=== PATIENT | female | born 1995 | race Two or more races ===

== ENCOUNTER 2025-02-03 11:20 | Outpatient (AMB) | payer BC, SELFPAY ==
--- NOTE | 2025-02-03 11:32 | GYNCLNT_ITS ---
Vital Signs 02/03/25 11:43 Height 1.8 m Height Method Stated Weight 64.92 kg Weight Measurement Method Standing Scale BMI 19.9 BP 108/66 Blood Pressure Source Automatic Cuff Blood Pressure Location Left Upper Arm Position Sitting Respiration 14 Pulse 69 Pulse Source Monitor Temp 97.5 F Temp Source Oral Pulse Oximetry (%) 99 Oxygen Delivery Method Room Air Allergies/Home Meds Allergies & Medications Allergies No Known Allergies Allergy (Verified 02/03/25 11:44) Medication Reconciliation vits no.124-ferrous fum 27 mg iron-folic acid 800 mcg tablet ( Vitamin) 1 tab PO DAILY 09/25/20 [History Confirmed 02/03/25] Intake Visit Data Collection New Patient or Established: Established Patient (seen at [facility] within 3 years) Reason for Visit:: CARE Seen by Clinical Staff ONLY (RN/MA): No 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 Do You Feel Safe at Home: Yes Authorities Contacted: N/A PCP or OBGYN visit in last 3 months: No Hx Now: Yes Are you currently on any form of Control: No Last menstrual period: 11/08/24 Pain Present Currently: No Pain Scale Used: Fierro-Benavidez/Numerical Pain scale:: 0 Smoking Status Smoking Status: Never smoker 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 Menstrual regularity: regular Flow: heavy Monthly: Yes How many days does period last: 6 Age at menarche: 12 Currently sexually active: Yes 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 1. Little interest or pleasure in doing things: not at all 2. Feeling down, depressed, or hopeless: not at all Total score: 0 PHQ-9 3. Trouble falling or staying asleep, or sleeping too much: Not at all 4. Feeling tired or having little energy: Not at all 5. Poor appetite or overeating: Not at all 6. Feeling bad about yourself - or that you are a failure or have let yourself or your family down: Not at all 7. Trouble concentrating on things, such as reading the newspaper or watching television: Not at all 8. Moving or speaking so slowly that other people could have noticed? - Or the opposite - being so fidgety or restless that you have been moving around a lot more than usual: not at all 9. Thoughts that you would be better off or of hurting yourself in some way: Not at all Total score: 0 Source: Developed by Drs. Camron Peters, Lola Burton, Manjinder Tierney and colleagues, with an educational grupo from [employer]. Depression screen completed yes Social History Living Situation History Housing: House Tobacco History Smoking Status: Never smoker Alcohol History Alcohol Intake: Never Domestic Abuse History Do You Feel Safe at Home: Yes History of Present Illness HPI Narrative 30 yo 2 para 1 for confirmation of . Patient had 3 positive home test but they were faint. Last. November 08, 2023. This gives a due date of August 14, 2025. This is a planned and both patient and are happy. Last 2 pregnancies were uncomplicated and normal births. Denies history of surgeries. Denies history of existing past medical history. Denies social habits. Patient has 1 child that has a neurological deficit and is missing a X chromosome. The little boy of 3 years old. And he is diagnosed with BBSOAS. Denies any nausea and vomiting. Feels tired. And denies any symptoms of SAB Review of Systems Review of Systems Systems Reviewed: All systems reviewed, normal except as documented Exam Narrative Physical exam: lungs clear, normal heart rate, VS stable. FH: 12 week. fht: 156 General Limitations: no limitations General Appearance: alert, in no apparent distress, comfortable, cooperative, healthy appearing, well developed and well groomed Head Head exam: atraumatic, normocephalic and normal inspection Resp Respiratory exam: Present normal lung sounds bilaterally Card Cardiovascular exam: Present regular rate, normal rhythm and normal heart sounds Abdominal Abdominal exam: Present soft and normal bowel sounds Psych Psychiatric exam: Present normal affect and normal mood Results Objective Laboratory: + test Office Procedures OB Clinic LOC & Office Proc's Nursing/Assessment Patient Status: Established Patient OB Clinic Nursing Assessment: Medication Reconciliation, Update PMH in EMR and Vital Signs OB Clinic Coordination of Care: Complex Care and Chronic Disease 1-5, Consent,records obtained, informed consent, Education Simp Pt/Fam, Lab and Imaging orders, Results/Orders obtained and Staff clarify orders Miscellaneous Interventions: Blood/Urine Collection Established Patient Charge Established Patient Point Assignment: 135 Established Patient Point Charge: EP Level 4 (120-155) In Clinic Bedside tests Bedside HCG: Yes Urine HCG Ambulatory Location Ambulatory Dept Location: OB Clinic Urine HCG HCG: Yes Results Urine HCG Urine HCG Positive Last Edit by Kandice Williamson MA on 02/03/25 11:49 Assessment & Plan Diagnosis / Problem List (1) Encounter for test, result positive: Status: Acute (2) Encounter for supervision of high risk in first trimester, antepartum: Status: Acute (3) Amenorrhea: Status: Acute Plan Continue vitamins. Patient was given a lab slip for OB panel today. I will schedule maternal- medicine ultrasound and genetics referral today. The patient will call me when she finds out if insurance will approve the maternity test and genetic screenings and then we will draw those. Comfort measures for nausea. Increase fluids and rest. And return in 4 weeks for OB check. Additional Plan Follow Up: 4 Weeks (OBI)
[2025-02-03 11:43] VITALS: BP 108/66; PULSE 69; RESP 14; TEMP 36.4; O2SAT 99; BMI 19.9
== END 2025-02-03 12:06 | disposition home or self-care (01) ==
PROVIDERS: Supervising Provider Obstetrics & Gynecology; Visit Provider Advanced Practice Midwife
DX: Z32.01 Encounter for pregnancy test, result positive (principal); N91.2 Amenorrhea, unspecified
CPT/HCPCS: 81025; 99214; G0463

== ENCOUNTER 2025-03-03 11:23 | Outpatient (AMB) | payer BC, SELFPAY ==
[2025-03-03 11:34] VITALS: BP 105/67; PULSE 79; RESP 17; TEMP 36.9; O2SAT 98; BMI 20.4
--- NOTE | 2025-03-03 11:34 | OBCLNT_ITS ---
Vital Signs 03/03/25 11:34 Height 1.8 m Height Method Stated Weight 66.395 kg Weight Measurement Method Standing Scale BMI 20.4 BP 105/67 Blood Pressure Source Automatic Cuff Blood Pressure Location Right Upper Arm Position Sitting Respiration 17 Pulse 79 Pulse Source Monitor Temp 98.5 F Temp Source Temporal Artery Scan Pulse Oximetry (%) 98 Oxygen Delivery Method Room Air Allergies/Home Meds Allergies & Medications Allergies No Known Allergies Allergy (Verified 03/03/25 11:35) Medication Reconciliation vits no.124-ferrous fum 27 mg iron-folic acid 800 mcg tablet ( Vitamin) 1 tab PO DAILY 09/25/20 [History Confirmed 03/03/25] Intake Visit Data Collection New Patient or Established: Established Patient (seen at [facility] within 3 years) Reason for Visit:: OBC Seen by Clinical Staff ONLY (RN/MA): No 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 1. Little interest or pleasure in doing things: not at all 2. Feeling down, depressed, or hopeless: not at all Total score: 0 PHQ-9 3. Trouble falling or staying asleep, or sleeping too much: Not at all 4. Feeling tired or having little energy: Not at all 5. Poor appetite or overeating: Not at all 6. Feeling bad about yourself - or that you are a failure or have let yourself o r your family down: Not at all 7. Trouble concentrating on things, such as reading the newspaper or watching television: Not at all 8. Moving or speaking so slowly that other people could have noticed? - Or the opposite - being so fidgety or restless that you have been moving around a lot more than usual: not at all 9. Thoughts that you would be better off or of hurting yourself in some way: Not at all Total score: 0 If you checked off any problems, how difficult have these problems made it for you to do your work, take care of things at home, or get along with other people?: not difficult at all Source: Developed by Drs. Camron Peters, Lola Burton, Manjinder Tierney and colleagues, with an educational grupo from [employer]. Depression screen completed yes Social History Living Situation History Housing: House Tobacco History Smoking Status: Never smoker Alcohol History Alcohol Intake: Never Domestic Abuse History Do You Feel Safe at Home: Yes RESIDENTIAL COLLECTIONS: Past Medical History Past Medical History: No Hx Neurological Disorders, No Hx Cardiac Disorders, No Hx Cancer, No Hx Blood Disorders, No Hx Gastrointestinal Disorders, No Hx Renal Disease, No Hx Diabetes Mellitus Type 1 and No Hx Diabetes Mellitus Type 2 Care OB Visit Log OB Flowsheet Initial Weight: Not Recorded Date -?-?-?-?-?-?-?-?-?-?-?-?- EGA Weight BP Alb Glu CTX Pres Fundal ht FHR Mov Dilation Station Effacement Hx Notes Visit Note 03/03/25 -?-?-?-?-?-?-?-?-?-?-?-?- 16w 3d 66.395 kg 105/67 absent unknown 16 145 active no ob complaints, light FM, patient unsure about NIPT draw, MFM appointment pending f/u on perinate appointment, reviewed nIPT, continue PNV, rtc 4 week FRACISCO Calculator Estimated Delivery Date Method Current WG Current Estimate 08/15/25 LMP (Certain) 16w 3d Notes Visit Date: 03/03/25 Last Updated by: Liss Guevara CNM 30 yo . lmp 11/08/24. EDC 08/15/25. O+,abs-, rpr;;nr, rub imm, hbsag-,hiv-. HC-, gc/ct-,[place]- Office Procedures OB Clinic LOC & Office Proc's Nursing/Assessment Patient Status: Established Patient OB Clinic Nursing Assessment: Medication Reconciliation, Update PMH in EMR and Vital Signs OB Clinic Coordination of Care: Complex Care and Chronic Disease 1-5, Consent,records obtained, informed consent, Education Simp Pt/Fam, Lab and Imaging orders and Staff clarify orders Special Needs: Heart tones Established Patient Charge Established Patient Point Assignment: 130 Established Patient Point Charge: EP Level 4 (120-155) Assessment & Plan Diagnosis / Problem List (1) Normal in multigravida in second trimester: Status: Acute Plan f/u on mfm appointment, discussed NIPT, patient will decide if insurance covers, sab precaution, continue PNV, rtc 4 week Additional Plan Follow Up: 4 Weeks (obc)
== END 2025-03-03 12:03 | disposition home or self-care (01) ==
LOC: HODSOBC 11:23
PROVIDERS: Supervising Provider Advanced Practice Midwife; Visit Provider Advanced Practice Midwife
DX: Z34.82 Encounter for supervision of other normal pregnancy, second trimester (principal); Z3A.16 16 weeks gestation of pregnancy
CPT/HCPCS: 99214; G0463

== ENCOUNTER 2025-03-31 11:04 | Outpatient (AMB) | payer BC, SELFPAY ==
[2025-03-31 11:13] VITALS: BP 102/63; PULSE 77; RESP 17; TEMP 36.8; O2SAT 98; BMI 21.0
--- NOTE | 2025-03-31 11:13 | OBCLNT_ITS ---
Vital Signs 03/31/25 11:13 Height 1.8 m Height Method Measured Weight 68.266 kg Weight Measurement Method Standing Scale BMI 21.0 BP 102/63 Blood Pressure Source Automatic Cuff Blood Pressure Location Right Upper Arm Position Sitting Respiration 17 Pulse 77 Pulse Source Monitor Temp 98.2 F Temp Source Temporal Artery Scan Pulse Oximetry (%) 98 Oxygen Delivery Method Room Air Allergies/Home Meds Allergies & Medications Allergies No Known Allergies Allergy (Verified 03/31/25 11:14) Medication Reconciliation vits no.124-ferrous fum 27 mg iron-folic acid 800 mcg tablet ( Vitamin) 1 tab PO DAILY 09/25/20 [History Confirmed 03/31/25] Intake Visit Data Collection New Patient or Established: Established Patient (seen at [facility] within 3 years) Reason for Visit:: C Consent obtained for Telemed Visit: No Seen by Clinical Staff ONLY (RN/MA): No Crocheter Hand Required: No Do You Feel Safe at Home: Yes Authorities Contacted: N/A PCP or OBGYN visit in last 3 months: Yes Date of Last PCP or OBGYN visit: 03/03/25 Hx Now: Yes Are you currently on any form of Control: No Pain Present Currently: No Pain Scale Used: Fierro-Benavidez/Numerical Pain scale:: 0 Smoking Status Smoking Status: Never smoker Questionnaires Covid-19 Vaccine Questionnaire Has patient been vacinated for Covid-19 Have you been vacinated for Covid-19: Yes PHQ-9 PHQ-2 Over the last 2 weeks, how often have you been bothered by any of the following problems? 1. Little interest or pleasure in doing things: not at all PHQ-9 8. Moving or speaking so slowly that other people could have noticed? - Or the opposite - being so fidgety or restless that you have been moving around a lot more than usual: not at all Source: Developed by Drs. Camron Peters, Lola Burton, Manjinder Tierney and colleagues, with an educational gruop from [employer]. 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 Past Medical History: No Hx Neurological Disorders, No Hx Cardiac Disorders, No Hx Cancer, No Hx Blood Disorders, No Hx Gastrointestinal Disorders, No Hx Renal Disease, No Hx Diabetes Mellitus Type 1 and No Hx Diabetes Mellitus Type 2 Care OB Visit Log OB Flowsheet Initial Weight: Not Recorded Date -?-?-?-?-?-?-?-?-?-?-?-?- EGA Weight BP Alb Glu CTX Pres Fundal ht FHR Mov Dilation Station Effacement Hx Notes Visit Note 03/03/25 -?-?-?-?-?-?-?-?-?-?-?-?- 16w 3d 66.395 kg 105/67 absent unknown 16 145 active no ob complaints, light FM, patient unsure about NIPT draw, MFM appointment pending f/u on perinate appointment, reviewed nIPT, continue PNV, rtc 4 week 03/31/25 -?-?-?-?-?-?-?-?-?-?-?--?- 20w 3d 68.266 kg 102/63 absent unknown 20 144 active no ob complaints. no ptl complaints, + FM, no leaking or bleeding, f/u MFM to check spine, need carrier screen nv carrier screen with 3rd tri labs, f/u mfm 6 week, hydrate, discuss ptl precaution. rtc 4 wk obc FRACISCO Calculator Estimated Delivery Date Method Current WG Current Estimate 08/15/25 Ultrasound #1 20w 3d Other Estimates 08/15/25 LMP (Certain) 20w 3d Notes Visit Date: 03/31/25 Last Updated by: Liss Guevara CNM 03/30: male Visit Date: 03/03/25 Last Updated by: Liss Guevara CNM 30 yo . lmp 11/08/24. EDC 08/15/25. O+,abs-, rpr;;nr, rub imm, hbsag-,hiv-. HC-, gc/ct-,[place]- Office Procedures OB Clinic LOC & Office Proc's Nursing/Assessment Patient Status: Established Patient OB Clinic Nursing Assessment: Medication Reconciliation, Update PMH in EMR and Vital Signs OB Clinic Coordination of Care: Complex Care and Chronic Disease 1-5, Consent,records obtained, informed consent, 4+ Authorizations needed, Results/Orders obtained and Staff clarify orders Special Needs: Heart tones Miscellaneous Interventions: Blood/Urine Collection Established Patient Charge Established Patient Point Assignment: 160 Established Patient Point Charge: EP Level 5 (160-above) Assessment & Plan Diagnosis / Problem List (1) Normal in multigravida in second trimester: Status: Acute Plan carrier screen with 3rd tri lab nv, discuss ptl precaution, hydrate, f/u mfm 6 week Additional Plan Follow Up: 4 Weeks (obc)
== END 2025-03-31 11:51 | disposition home or self-care (01) ==
LOC: HODSOBC 11:04
PROVIDERS: Supervising Provider Advanced Practice Midwife; Visit Provider Advanced Practice Midwife
DX: Z34.82 Encounter for supervision of other normal pregnancy, second trimester (principal); Z3A.20 20 weeks gestation of pregnancy
CPT/HCPCS: 99215; G0463

== ENCOUNTER → 2025-06-03 08:34 | Outpatient (AMB) | payer BC, SELFPAY ==
[2025-06-03 08:38] VITALS: BP 104/54; PULSE 76; RESP 16; TEMP 36.2; O2SAT 98; BMI 22.4
--- NOTE | 2025-06-03 08:38 | OBCLNT_ITS ---
Vital Signs 06/03/25 08:38 Height 1.8 m Height Method Stated Weight 72.631 kg Weight Measurement Method Standing Scale BMI 22.4 BP 104/54 L Blood Pressure Source Automatic Cuff Blood Pressure Location Left Upper Arm Position Sitting Respiration 16 Pulse 76 Pulse Source Monitor Temp 97.2 F Temp Source Oral Pulse Oximetry (%) 98 Oxygen Delivery Method Room Air Allergies/Home Meds Allergies & Medications Allergies No Known Allergies Allergy (Verified 06/03/25 08:39) Medication Reconciliation vits no.124-ferrous fum 27 mg iron-folic acid 800 mcg tablet ( Vitamin) 1 tab PO DAILY 09/25/20 [History Confirmed 06/03/25] Intake Visit Data Collection New Patient or Established: Established Patient (seen at [facility] within 3 years) Reason for Visit:: OBC Seen by Clinical Staff ONLY (RN/MA): No 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 1. Little interest or pleasure in doing things: not at all 2. Feeling down, depressed, or hopeless: not at all Total score: 0 PHQ-9 3. Trouble falling or staying asleep, or sleeping too much: Not at all 4. Feeling tired or having little energy: Not at all 5. Poor appetite or overeating: Not at all 6. Feeling bad about yourself - or that you are a failure or have let yourself or your family down: Not at all 7. Trouble concentrating on things, such as reading the newspaper or watching television: Not at all 8. Moving or speaking so slowly that other people could have noticed? - Or the opposite - being so fidgety or restless that you have been moving around a lot more than usual: not at all 9. Thoughts that you would be better off or of hurting yourself in some way: Not at all Total score: 0 If you checked off any problems, how difficult have these problems made it for you to do your work, take care of things at home, or get along with other people?: not difficult at all Source: Developed by Drs. Camron Peters, Lola Burton, Manjinder Tierney and colleagues, with an educational grupo from [employer]. 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 Past Medical History: No Hx Neurological Disorders, No Hx Cardiac Disorders, No Hx Cancer, No Hx Blood Disorders, No Hx Gastrointestinal Disorders, No Hx Renal Disease, No Hx Diabetes Mellitus Type 1 and No Hx Diabetes Mellitus Type 2 Care OB Visit Log OB Flowsheet Initial Weight: Not Recorded Date -?-?-?-?-?-?-?-?-?-?-?-?- EGA Weight BP Alb Glu CTX Pres Fundal ht FHR Mov Dilation Station Effacement Hx Notes Visit Note 03/03/25 -?-?-?-?-?-?-?-?-?-?--?-?- 16w 3d 66.395 kg 105/67 absent unknown 16 145 active no ob complaints, light FM, patient unsure about NIPT draw, MFM appointment pending f/u on perinate appointment, reviewed nIPT, continue PNV, rtc 4 week 03/31/25 -?-?-?-?-?-?-?-?-?-?-?-?- 20w 3d 68.266 kg 102/63 absent unknown 20 144 active no ob complaints. no ptl complaints, + FM, no leaking or bleeding, f/u MFM to check spine, need carrier screen nv carrier screen with 3rd tri labs, f/u mfm 6 week, hydrate, discuss ptl precaution. rtc 4 wk obc FRACISCO Calculator Estimated Delivery Date Method Current WG Current Estimate 08/15/25 Ultrasound #1 29w 4d Other Estimates 08/15/25 LMP (Certain) 29w 4d Notes Visit Date: 03/31/25 Last Updated by: Liss Guevara CNM 03/30: male Visit Date: 03/03/25 Last Updated by: Liss Guevara CNM 30 yo . lmp 11/08/24. EDC 08/15/25. O+,abs-, rpr;;nr, rub imm, hbsag-,hiv-. HC-, gc/ct-,[place]- Office Procedures OB Clinic LOC & Office Proc's Nursing/Assessment Patient Status: Established Patient OB Clinic Nursing Assessment: Medication Reconciliation, Update PMH in EMR and Vital Signs OB Clinic Coordination of Care: Education Complex Pt/Fam, Consent,records obtained, informed consent, Lab and Imaging orders and Staff clarify orders Special Needs: Heart tones Established Patient Charge Established Patient Point Assignment: 110 Established Patient Point Charge: EP Level 3 (01-115)
== END ==
LOC: HODSOBC 08:34
PROVIDERS: Supervising Provider Advanced Practice Midwife; Visit Provider Advanced Practice Midwife
DX: Z34.83 Encounter for supervision of other normal pregnancy, third trimester (principal); Z3A.30 30 weeks gestation of pregnancy
CPT/HCPCS: 99213; G0463

== ENCOUNTER 2025-06-09 14:42 | Outpatient (AMB) | payer BC, SELFPAY ==
[2025-06-09 14:57] VITALS: BP 110/63; PULSE 76; RESP 16; TEMP 36.2; O2SAT 98; BMI 22.7
--- NOTE | 2025-06-09 14:57 | AMB.OBVISIT ---
Vital Signs 06/09/25 14:57 Height 1.8 m Height Method Stated Weight 73.709 kg Weight Measurement Method Standing Scale BMI 22.7 BP 110/63 Blood Pressure Source Automatic Cuff Blood Pressure Location Left Upper Arm Position Sitting Respiration 16 Pulse 76 Pulse Source Monitor Temp 97.2 F Temp Source Oral Pulse Oximetry (%) 98 Oxygen Delivery Method Room Air Allergies/Home Meds Allergies & Medications Allergies No Known Allergies Allergy (Verified 06/09/25 14:58) Medication Reconciliation vits no.124-ferrous fum 27 mg iron-folic acid 800 mcg tablet ( Vitamin) 1 tab PO DAILY 09/25/20 [History Confirmed 06/09/25] Intake Visit Data Collection New Patient or Established: Established Patient (seen at [facility] within 3 years) Reason for Visit:: OBC Seen by Clinical Staff ONLY (RN/MA): No Director Of Golf Required: No Do You Feel Safe at Home: Yes Authorities Contacted: N/A PCP or OBGYN visit in last 3 months: Yes Hx Now: Yes Are you currently on any form of Control: No Pain Present Currently: No Pain Scale Used: Fierro-Benavidez/Numerical Pain scale:: 0 Smoking Status Smoking Status: Never smoker Questionnaires Covid-19 Vaccine Questionnaire Has patient been vacinated for Covid-19 Have you been vacinated for Covid-19: Yes PHQ-9 PHQ-2 Over the last 2 weeks, how often have you been bothered by any of the following problems? 1. Little interest or pleasure in doing things: not at all 2. Feeling down, depressed, or hopeless: not at all Total score: 0 PHQ-9 3. Trouble falling or staying asleep, or sleeping too much: Not at all 4. Feeling tired or having little energy: Not at all 5. Poor appetite or overeating: Not at all 6. Feeling bad about yourself - or that you are a failure or have let yourself or your family down: Not at all 7. Trouble concentrating on things, such as reading the newspaper or watching television: Not at all 8. Moving or speaking so slowly that other people could have noticed? - Or the opposite - being so fidgety or restless that you have been moving around a lot more than usual: not at all 9. Thoughts that you would be better off or of hurting yourself in some way: Not at all Total score: 0 If you checked off any problems, how difficult have these problems made it for you to do your work, take care of things at home, or get along with other people?: not difficult at all Source: Developed by Drs. Camron Peters, Lola Burton, Manjinder Tierney and colleagues, with an educational grupo from [employer]. 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 Past Medical History: No Hx Neurological Disorders, No Hx Cardiac Disorders, No Hx Cancer, No Hx Blood Disorders, No Hx Gastrointestinal Disorders, No Hx Renal Disease, No Hx Diabetes Mellitus Type 1 and No Hx Diabetes Mellitus Type 2 Care OB Visit Log OB Flowsheet Initial Weight: Not Recorded Date <del>?</del> EGA Weight BP Alb Glu CTX Pres Fundal ht FHR Mov Dilation Station Effacement Hx Notes Visit Note 03/03/25 <del>?</del> 16w 3d 66.395 kg 105/67 absent unknown 16 145 active no ob complaints, light FM, patient unsure about NIPT draw, MFM appointment pending f/u on perinate appointment, reviewed nIPT, continue PNV, rtc 4 week 03/31/25 <del>?</del> 20w 3d 68.266 kg 102/63 absent unknown 20 144 active no ob complaints. no ptl complaints, + FM, no leaking or bleeding, f/u MFM to check spine, need carrier screen nv carrier screen with 3rd tri labs, f/u mfm 6 week, hydrate, discuss ptl precaution. rtc 4 wk obc 06/09/25 <del>?</del> 30w 3d 73.709 kg 110/63 absent cephalic 30 135 active Fetus active. Denies any labor. Patient declined Tdap today. Reports good movement. Denies leaking, denies bleeding, denies contractions 3rd tri labs today, carrier screen [place], f/u mfm 06/16, discuss ptl precaution. discuss TDAP. rtc 2 week OBC FRACISCO Calculator Estimated Delivery Date Method Current WG Current Estimate 08/15/25 LMP (Certain) 30w 3d Other Estimates 08/15/25 Ultrasound #1 30w 3d 08/15/25 Manual 30w 3d Final FRACISCO: 08/15/25 Notes Visit Date: 03/31/25 Last Updated by: Liss Guevara CNM 03/30: male Visit Date: 03/03/25 Last Updated by: Liss Guevara CNM 30 yo . lmp 11/08/24. EDC 08/15/25. O+,abs-, rpr;;nr, rub imm, hbsag-,hiv-. HC-, gc/ct-,[place]- Office Procedures OB Clinic LOC & Office Proc's Nursing/Assessment Patient Status: Established Patient OB Clinic Nursing Assessment: Medication Reconciliation, Update PMH in EMR and Vital Signs OB Clinic Coordination of Care: Education Complex Pt/Fam, Consent,records obtained, informed consent, Lab and Imaging orders, Results/Orders obtained and Staff clarify orders Special Needs: Heart tones Established Patient Charge Established Patient Point Assignment: 115 Established Patient Point Charge: EP Level 3 (80-115) Assessment & Plan Diagnosis / Problem List (1) Encounter for care in third trimester of first : Status: Acute Plan Third trimester labs. I reviewed carrier screen with patient and she will let me know next visit if she wants to do that. Also discussed Tdap. Patient will let me know if she desires Tdap next visit. Follow-up [facility] July 16. Discussed labor precautions and kick counts return in 2 weeks OB check Additional Plan Follow Up: 2 Weeks (obc)
== END 2025-06-09 15:16 | disposition home or self-care (01) ==
LOC: HODSOBC 14:42
PROVIDERS: Supervising Provider Advanced Practice Midwife; Visit Provider Advanced Practice Midwife
DX: Z34.83 Encounter for supervision of other normal pregnancy, third trimester (principal); Z3A.30 30 weeks gestation of pregnancy
CPT/HCPCS: 99213; G0463

== ENCOUNTER 2025-07-15 14:58 | Outpatient (AMB) | payer BC, SELFPAY ==
--- NOTE | 2025-07-15 15:06 | OBCLNT_ITS ---
Vital Signs 07/15/25 15:07 Height 1.8 m Height Method Stated Weight 75.013 kg Weight Measurement Method Standing Scale BMI 23.1 BP 104/64 Blood Pressure Source Automatic Cuff Blood Pressure Location Left Upper Arm Position Sitting Respiration 16 Pulse 74 Pulse Source Monitor Temp 97.2 F Temp Source Oral Pulse Oximetry (%) 98 Oxygen Delivery Method Room Air Allergies/Home Meds Allergies & Medications Allergies No Known Allergies Allergy (Verified 07/15/25 15:08) Medication Reconciliation vits no.124-ferrous fum 27 mg iron-folic acid 800 mcg tablet ( Vitamin) 1 tab PO DAILY 09/25/20 [History Confirmed 07/15/25] Intake Visit Data Collection New Patient or Established: Established Patient (seen at [facility] within 3 years) Reason for Visit:: OBC Seen by Clinical Staff ONLY (RN/MA): No Coffee Grinder Required: No Do You Feel Safe at Home: Yes Authorities Contacted: N/A PCP or OBGYN visit in last 3 months: Yes Date of Last PCP or OBGYN visit: 06/09/25 Hx Now: Yes Are you currently on any form of Control: No Pain Present Currently: No Pain Scale Used: Fierro-Benavidez/Numerical Pain scale:: 0 Smoking Status Smoking Status: Never smoker Immunizations Flu Vaccine in the Last 12 Months: No Flu Vaccine Exclusion Criteria: No Exclusion Criteria Questionnaires Covid-19 Vaccine Questionnaire Has patient been vacinated for Covid-19 Have you been vacinated for Covid-19: No PHQ-9 PHQ-2 Over the last 2 weeks, how often have you been bothered by any of the following problems? 1. Little interest or pleasure in doing things: not at all 2. Feeling down, depressed, or hopeless: not at all Total score: 0 PHQ-9 3. Trouble falling or staying asleep, or sleeping too much: Not at all 4. Feeling tired or having little energy: Not at all 5. Poor appetite or overeating: Not at all 6. Feeling bad about yourself - or that you are a failure or have let yourself or your family down: Not at all 7. Trouble concentrating on things, such as reading the newspaper or watching television: Not at all 8. Moving or speaking so slowly that other people could have noticed? - Or the opposite - being so fidgety or restless that you have been moving around a lot more than usual: not at all 9. Thoughts that you would be better off or of hurting yourself in some way: Not at all Total score: 0 If you checked off any problems, how difficult have these problems made it for you to do your work, take care of things at home, or get along with other people?: not difficult at all Source: Developed by Drs. Camron Peters, Lola Burton, Manjinder Tierney and colleagues, with an educational grupo from [employer]. 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 Past Medical History: No Hx Neurological Disorders, No Hx Cardiac Disorders, No Hx Cancer, No Hx Blood Disorders, No Hx Gastrointestinal Disorders, No Hx Renal Disease, No Hx Diabetes Mellitus Type 1 and No Hx Diabetes Mellitus Type 2 Care OB Visit Log OB Flowsheet Initial Weight: Not Recorded Date -?-?-?-?-?-?-?-?-?-?-?-?- EGA Weight BP Alb Glu CTX Pres Fundal ht FHR Mov Dilation Station Effacement Hx Notes Visit Note 03/03/25 -?-?-?-?-?-?-?-?-?-?-?-?- 16w 3d 66.395 kg 105/67 absent unknown 16 145 active no ob complaints, light FM, patient unsure about NIPT draw, MFM appointment pending f/u on perinate appointment, reviewed nIPT, continue PNV, rtc 4 week 03/31/25 -?-?-?-?-?-?-?-?-?-?-?-?- 20w 3d 68.266 kg 102/63 absent unknown 20 144 active no ob complaints. no ptl complaints, + FM, no leaking or bleeding, f/u MFM to check spine, need carrier screen nv carrier screen with 3rd tri labs, f/u mfm 6 week, hydrate, discuss ptl precaution. rtc 4 wk obc 06/09/25 -?-?-?-?-?-?-?-?-?-?-?-?- 30w 3d 73.709 kg 110/63 absent cephalic 30 135 active Fetus active. Denies any labor. Patient declined Tdap today. Reports good movement. Denies leaking, denies bleeding, denies contractions 3rd tri labs today, carrier screen NV, f/u [facility] 06/16, discuss ptl precaution. discuss TDAP. rtc 2 week OBC 07/15/25 -?-?-?-?-?-?-?-?-?-?-?-?- 35w 4d 75.013 kg 104/64 absent cephalic 35 145 active fetus active. no labor complaints. denies leaking, bleeding or cramps Patient started disability July 03. Discussed labor precautions and kick count twice a day. GBS today. Continue prenatals. Return in a week OB check. Patient has an appointment with [facility] in the morning FRACISCO Calculator Estimated Delivery Date Method Current WG Current Estimate 08/15/25 LMP (Certain) 35w 4d Other Estimates 08/15/25 Ultrasound #1 35w 4d 08/15/25 Manual 35w 4d Final FRACISCO: 07/26 11/18 Notes Visit Date: 03/31/25 Last Updated by: Liss Guevara CNM 03/30: male Visit Date: 03/03/25 Last Updated by: Liss Guevara CNM 30 yo . lmp 11/08/24. EDC 08/15/25. O+,abs-, rpr;;nr, rub imm, hbsag-,hiv-. HC-, gc/ct-,[place]- Office Procedures OBC Clinic LOC & Office Proc's Nursing/Assessment Patient Status: Established Patient OB Clinic Nursing Assessment: Medication Reconciliation, Update PMH in EMR and Vital Signs OB Clinic Coordination of Care: Consent,records obtained, informed consent, Education Simp Pt/Fam, Results/Orders obtained, Staff clarify orders and Tra nsfer to another fac Special Needs: Heart tones Established Patient Charge Established Patient Point Assignment: 105 Established Patient Point Charge: EP Level 3 (80-115) Assessment & Plan Diagnosis / Problem List (1) Encounter for care in third trimester of first : Status: Acute Plan GBS today. Discussed labor precautions. Kick count. Sono in the morning at [facility]. Increase fluids. Do prenatals. Disability start July 03, 2025 Additional Plan Follow Up: 1 Week (obc)
[2025-07-15 15:07] VITALS: BP 104/64; PULSE 74; RESP 16; TEMP 36.2; O2SAT 98; BMI 23.1
== END 2025-07-15 15:18 | disposition home or self-care (01) ==
LOC: HODSOBC 14:58
PROVIDERS: Supervising Provider Advanced Practice Midwife; Visit Provider Advanced Practice Midwife
DX: Z34.83 Encounter for supervision of other normal pregnancy, third trimester (principal); Z3A.35 35 weeks gestation of pregnancy; Z36.85 Encounter for antenatal screening for Streptococcus B
CPT/HCPCS: 99213; G0463

== ENCOUNTER 2025-07-28 11:24 | Outpatient (AMB) | payer BC, SELFPAY ==
[2025-07-28 11:34] VITALS: BP 117/68; PULSE 74; RESP 18; TEMP 36.2; O2SAT 98; BMI 19.5
--- NOTE | 2025-07-28 11:34 | OBCLNT_ITS ---
Vital Signs 07/28/25 11:34 Height 1.8 m Height Method Stated Weight 63.219 kg Weight Measurement Method Standing Scale BMI 19.5 BP 117/68 Blood Pressure Source Automatic Cuff Blood Pressure Location Left Upper Arm Position Sitting Respiration 18 Pulse 74 Pulse Source Monitor Temp 97.2 F Temp Source Oral Pulse Oximetry (%) 98 Oxygen Delivery Method Room Air Allergies/Home Meds Allergies & Medications Allergies No Known Allergies Allergy (Verified 07/28/25 11:36) Medication Reconciliation vits no.124-ferrous fum 27 mg iron-folic acid 800 mcg tablet ( Vitamin) 1 tab PO DAILY 09/25/20 [History Confirmed 07/28/25] Intake Visit Data Collection New Patient or Established: Established Patient (seen at [facility] within 3 years) Reason for Visit:: OBC Seen by Clinical Staff ONLY (RN/MA): No 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 Do You Feel Safe at Home: Yes Authorities Contacted: N/A PCP or OBGYN visit in last 3 months: Yes Date of Last PCP or OBGYN visit: 07/15/25 Hx Now: Yes Are you currently on any form of Control: No Pain Present Currently: No Pain Scale Used: Fierro-Benavidez/Numerical Pain scale:: 0 Smoking Status Smoking Status: Never smoker Immunizations Flu Vaccine in the Last 12 Months: No Flu Vaccine Exclusion Criteria: No Exclusion Criteria Questionnaires Covid-19 Vaccine Questionnaire Has patient been vacinated for Covid-19 Have you been vacinated for Covid-19: No PHQ-9 PHQ-2 Over the last 2 weeks, how often have you been bothered by any of the following problems? 1. Little interest or pleasure in doing things: not at all 2. Feeling down, depressed, or hopeless: not at all Total score: 0 PHQ-9 3. Trouble falling or staying asleep, or sleeping too much: Not at all 4. Feeling tired or having little energy: Not at all 5. Poor appetite or overeating: Not at all 6. Feeling bad about yourself - or that you are a failure or have let yourself or your family down: Not at all 7. Trouble concentrating on things, such as reading the newspaper or watching television: Not at all 8. Moving or speaking so slowly that other people could have noticed? - Or the opposite - being so fidgety or restless that you have been moving around a lot more than usual: not at all 9. Thoughts that you would be better off or of hurting yourself in some way: Not at all Total score: 0 If you checked off any problems, how difficult have these problems made it for you to do your work, take care of things at home, or get along with other people?: not difficult at all Source: Developed by Drs. Camron Peters, Lola Burton, Manjinder Tierney and colleagues, with an educational grupo from [employer]. 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 Past Medical History: No Hx Neurological Disorders, No Hx Cardiac Disorders, No Hx Cancer, No Hx Blood Disorders, No Hx Gastrointestinal Disorders, No Hx Renal Disease, No Hx Diabetes Mellitus Type 1 and No Hx Diabetes Mellitus Type 2 Care OB Visit Log OB Flowsheet Initial Weight: Not Recorded Date -?-?-?-?-?-?-?-?-?-?-?--?- EGA Weight BP Alb Glu CTX Pres Fundal ht FHR Mov Dilation Station E ffacement Hx Notes Visit Note 03/03/25 -?-?-?-?-?-?-?-?-?-?-?-?- 16w 3d 66.395 kg 105/67 absent unknown 16 145 active no ob complaints, light FM, patient unsure about NIPT draw, MFM appointment pending f/u on perinate appointment, reviewed nIPT, continue PNV, rtc 4 week 03/31/25 -?-?-?-?-?-?-?-?-?-?-?-?- 20w 3d 68.266 kg 102/63 absent unknown 20 144 active no ob complaints. no ptl complaints, + FM, no leaking or bleeding, f/u MFM to check spine, need carrier screen nv carrier screen with 3rd tri labs, f/u mfm 6 week, hydrate, discuss ptl precaution. rtc 4 wk obc 06/09/25 -?-?-?-?-?-?-?-?-?-?-?-?- 30w 3d 73.709 kg 110/63 absent cephalic 30 135 active Fetus active. Denies any labor. Patient declined Tdap today. Reports good movement. Denies leaking, denies bleeding, denies contractions 3rd tri labs today, carrier screen [place], f/u [facility] 06/16, discuss ptl precaution. discuss TDAP. rtc 2 week OBC 07/15/25 -?-?-?-?-?-?-?-?-?-?--?-?- 35w 4d 75.013 kg 104/64 absent cephalic 35 145 active fetus active. no labor complaints. denies leaking, bleeding or cramps Patient started disability July 03. Discussed labor precautions and kick count twice a day. GBS today. Continue prenatals. Return in a week OB check. Patient has an appointment with [facility] in the morning 07/28/25 -?-?-?-?-?-?-?-?-?-?-?-?- 37w 3d 63.219 kg 117/68 occasional cephalic 37 145 active Fetus active. Occasional contraction. Denies leaking or bleeding GBS negative. Discussed labor precautions. Kick count twice a day. Increase fluids. Return in a week OB check FRACISCO Calculator Estimated Delivery Date Method Current WG Current Estimate 08/15/25 LMP (Certain) 37w 3d Other Estimates 08/15/25 Ultrasound #1 37w 3d 08/15/25 Ultrasound #2 37w 3d 08/15/25 Manual 37w 3d Final FRACISCO: 07/26 11/18 Notes Visit Date: 07/28/25 Last Updated by: Liss Guevara CNM GBS- Visit Date: 03/31/25 Last Updated by: Liss Guevara CNM 03/30: male Visit Date: 03/03/25 Last Updated by: Liss Guevara CNM 30 yo . lmp 11/08/24. EDC 08/15/25. O+,abs-, rpr;;nr, rub imm, hbsag-,hiv-. HC-, gc/ct-,[place]- Office Procedures OBC Clinic LOC & Office Proc's Nursing/Assessment Patient Status: Established Patient OB Clinic Nursing Assessment: Medication Reconciliation, Update PMH in EMR and Vital Signs OB Clinic Coordination of Care: Consent,records obtained, informed consent, Education Simp Pt/Fam, Lab and Imaging orders, Results/Orders obtained and Staff clarify orders Special Needs: Heart tones Established Patient Charge Established Patient Point Assignment: 110 Established Patient Point Charge: EP Level 3 (80-115) Assessment & Plan Diagnosis / Problem List (1) Encounter for care in third trimester of first : Status: Acute Plan Discussed labor precautions. Kick count twice a day. GBS negative. Return in a week OB check Additional Plan Follow Up: 1 Week (obc)
== END 2025-07-28 11:57 | disposition home or self-care (01) ==
PROVIDERS: Supervising Provider Advanced Practice Midwife; Visit Provider Advanced Practice Midwife
DX: Z34.83 Encounter for supervision of other normal pregnancy, third trimester (principal); Z3A.37 37 weeks gestation of pregnancy
CPT/HCPCS: 99213; G0463

== ENCOUNTER 2025-08-05 08:29 | Outpatient (AMB) | payer BC, SELFPAY ==
[2025-08-05 08:58] VITALS: BP 103/66; PULSE 71; RESP 18; TEMP 36.5; O2SAT 97; BMI 24.0
--- NOTE | 2025-08-05 08:58 | OBCLNT_ITS ---
Vital Signs 08/05/25 08:58 Height 1.8 m Height Method Stated Weight 78.075 kg Weight Measurement Method Standing Scale BMI 24.0 BP 103/66 Blood Pressure Source Automatic Cuff Blood Pressure Location Right Upper Arm Position Sitting Respiration 18 Pulse 71 Pulse Source Monitor Temp 97.7 F Temp Source Temporal Artery Scan Pulse Oximetry (%) 97 Oxygen Delivery Method Room Air Allergies/Home Meds Allergies & Medications Allergies No Known Allergies Allergy (Verified 08/05/25 08:59) Intake Visit Data Collection New Patient or Established: Established Patient (seen at [facility] within 3 years) Reason for Visit:: OBC Seen by Clinical Staff ONLY (RN/MA): No [employer] Required: No Do You Feel Safe at Home: Yes Authorities Contacted: N/A PCP or OBGYN visit in last 3 months: Yes Date of Last PCP or OBGYN visit: 07/28/25 Hx Now: Yes Are you currently on any form of Control: No Pain Present Currently: No Pain Scale Used: Fierro-Benavidez/Numerical Pain scale:: 0 Smoking Status Smoking Status: Never smoker Immunizations Flu Vaccine in the Last 12 Months: No Flu Vaccine Exclusion Criteria: No Exclusion Criteria Questionnaires Covid-19 Vaccine Questionnaire Has patient been vacinated for Covid-19 Have you been vacinated for Covid-19: Yes PHQ-9 PHQ-2 Over the last 2 weeks, how often have you been bothered by any of the following problems? 1. Little interest or pleasure in doing things: not at all 2. Feeling down, depressed, or hopeless: not at all Total score: 0 PHQ-9 3. Trouble falling or staying asleep, or sleeping too much: Not at all 4. Feeling tired or having little energy: Not at all 5. Poor appetite or overeating: Not at all 6. Feeling bad about yourself - or that you are a failure or have let yourself or your family down: Not at all 7. Trouble concentrating on things, such as reading the newspaper or watching television: Not at all 8. Moving or speaking so slowly that other people could have noticed? - Or the opposite - being so fidgety or restless that you have been moving around a lot more than usual: not at all 9. Thoughts that you would be better off or of hurting yourself in some way: Not at all Total score: 0 If you checked off any problems, how difficult have these problems made it for you to do your work, take care of things at home, or get along with other people?: not difficult at all Source: Developed by Drs. Camron Peters, Lola Burton, Manjinder Tierney and colleagues, with an educational grupo from [employer]. 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: Past Medical History Past Medical History: No Hx Neurological Disorders, No Hx Cardiac Disorders, No Hx Cancer, No Hx Blood Disorders, No Hx Gastrointestinal Disorders, No Hx Renal Disease, No Hx Diabetes Mellitus Type 1 and No Hx Diabetes Mellitus Type 2 Care OB Visit Log OB Flowsheet Initial Weight: Not Recorded Date -?-?-?-?-?-?-?-?-?-?-?-?- EGA Weight BP Alb Glu CTX Pres Fundal ht FHR Mov Dilation Station Effacement Hx Notes Visit Note 03/03/25 -?-?-?-?-?-?-?-?-?-?-?-?- 16w 3d 66.395 kg 105/67 absent unknown 16 145 active no ob complaints, light FM, patient unsure about NIPT draw, MFM appointment pending f/u on perinate appointment, reviewed nIPT, continue PNV, rtc 4 week 03/31/25 -?-?-?-?-?-?-?-?-?-?-?-?- 20w 3d 68.266 kg 102/63 absent unknown 20 144 active no ob complaints. no ptl complaints, + FM, no leaking or bleeding, f/u MFM to check spine, need carrier screen nv carrier screen with 3rd tri labs, f/u mfm 6 week, hydrate, discuss ptl precaution. rtc 4 wk obc 06/09/25 -?-?-?-?-?-?-?-?-?-?-?-?- 30w 3d 73.709 kg 110/63 absent cephalic 30 135 active Fetus active. Denies any labor. Patient declined Tdap today. Reports good movement. Denies leaking, denies bleeding, denies contractions 3rd tri labs today, carrier screen NV, f/u [facility] 06/16, discuss ptl precaution. discuss TDAP. rtc 2 week OBC 07/15/25 -?-?-?-?-?-?-?-?-?-?-?-?- 35w 4d 75.013 kg 104/64 absent cephalic 35 145 active fetus active. no labo r complaints. denies leaking, bleeding or cramps Patient started disability July 03. Discussed labor precautions and kick count twice a day. GBS today. Continue prenatals. Return in a week OB check. Patient has an appointment with [facility] in the morning 07/28/25 -?-?-?-?-?-?-?-?-?-?-?-?- 37w 3d 63.219 kg 117/68 occasional cephalic 37 145 active Fetus active. Occasional contraction. Denies leaking or bleeding GBS negative. Discussed labor precautions. Kick count twice a day. Increase fluids. Return in a week OB check 08/05/25 -?-?-?-?-?-?-?-?-?-?-?-?- 38w 4d 78.075 kg 103/66 occasional cephalic 38 145 active 1 -2 50 Fetus active. Increased pressure. Denies leaking or bleeding. Occasional contraction Discussed labor precautions. Kick count twice a day. Continue prenatals. Discussed danger signs symptoms return a week OB check FRACISCO Calculator Estimated Delivery Date Method Current WG Current Estimate 08/15/25 LMP (Certain) 38w 4d Other Estimates 08/15/25 Ultrasound #1 38w 4d 08/15/25 Ultrasound #2 38w 4d 08/15/25 Manual 38w 4d Final FRACISCO: 07/26 11/18 Notes Visit Date: 07/28/25 Last Updated by: Liss Guevara CNM GBS- Visit Date: 03/31/25 Last Updated by: Liss Guevara CNM 03/30: male Visit Date: 03/03/25 Last Updated by: Liss Guevara CNM 30 yo . lmp 11/08/24. EDC 08/15/25. O+,abs-, rpr;;nr, rub imm, hbsag-,hiv-. HC-, gc/ct-,UT- Office Procedures OBC Clinic LOC & Office Proc's Nursing/Assessment Patient Status: Established Patient OB Clinic Nursing Assessment: Medication Reconciliation, Update PMH in EMR and Vital Signs OB Clinic Coordination of Care: Complex Care and Chronic Disease 1-5, Education Complex Pt/Fam, Consent,records obtained, informed consent and Staff clarify orders Special Needs: Heart tones Established Patient Charge Established Patient Point Assignment: 120 Established Patient Point Charge: EP Level 4 (120-155) Assessment & Plan Diagnosis / Problem List (1) Encounter for care in third trimester of first : Status: Acute Plan Discussed labor precautions. Kick count twice a day. Discussed danger signs symptoms and ER precautions. Continue prenatals and return in a week OB to Additional Plan Follow Up: 1 Week (obc)
== END 2025-08-05 09:33 | disposition home or self-care (01) ==
LOC: HODSOBC 08:29
PROVIDERS: Supervising Provider Advanced Practice Midwife; Visit Provider Advanced Practice Midwife
DX: Z34.83 Encounter for supervision of other normal pregnancy, third trimester (principal); Z3A.38 38 weeks gestation of pregnancy
CPT/HCPCS: 99214; G0463

== ENCOUNTER 2025-08-07 22:56 | Inpatient (IN) | payer BC, SELFPAY ==
[2025-08-07 23:09] VITALS: BMI 24.4
[2025-08-07 23:18] VITALS: BP 130/79; PULSE 97; PULSE 99; RESP 19; RESP 99; TEMP 36.6
[2025-08-07 23:32] VITALS: BMI 24.4
[2025-08-07] MEDS: RINGERS LACTATED 1000 ML 1,000 ML 125 ML IV (23:43)
[2025-08-07 23:59] LABS: Basophils # (Auto) 0.1 Thou/mm3 (0.0-0.2); Basophils % (Auto) 1 % (0-2.5); Eosinophils # (Auto) 0.2 Thou/mm3 (0.0-0.5); Eosinophils % (Auto) 1 % (0-10); Hematocrit 34.3 % (36.0-46.0); Hemoglobin 11.3 g/dL (12.0-16.0); Immature Granulocytes Auto 0.13 Thou/mm3 (0.00-0.00); Lymphocytes # (Auto) 1.6 Thou/mm3 (1.0-4.8); Lymphocytes % (Auto) 13 % (10-50); Mean Corpuscular HGB Conc 32.9 g/dl (31.0-37.0); Mean Corpuscular Hemoglobin 28.0 pg (25.0-35.0); Mean Corpuscular Volume 85 fL (80-100); Monocytes # (Auto) 0.8 Thou/mm3 (0.0-0.8); Monocytes % (Auto) 6 % (0-12); Neutrophils # (Auto) 9.7 Thou/mm3 (1.8-7.7); Neutrophils % (Auto) 78 % (37-80); Nucleated Red Blood Cell # 0.00 Thou/mm3 (0.00-0.00); Nucleated Red Blood Cell % 0 /100 WBC (0); Platelet Count 183 Thou/mm3 (140-440); RDW Standard Deviation 47.2 fL (36.4-46.3); Red Blood Count 4.04 Miln/mm3 (4.00-5.20); White Blood Count 12.4 Thou/mm3 (3.6-11.0)
[2025-08-08] VITALS (103 sets, daily range): BP systolic 87–136; BP diastolic 46–83; PULSE 60–103; RESP 16–19; TEMP 36.6–36.8; O2SAT 71–100
[2025-08-08 00:43] LABS: Syphilis Nonreactive (Nonreactive)
[2025-08-08] MEDS: RINGERS LACTATED 1000 ML 1,000 ML 125 ML IV (00:48)
[2025-08-08 01:54] LABS: Amphetamine/Metham Scrn,Ur OB Negative (Negative); Benzoylecgonine Screen, Ur OB Negative (Negative); Opiate Screen,Urine OB Negative (Negative); THC Screen,Urine OB Negative (Negative)
[2025-08-08] MEDS: MINERAL OIL 30 ML UDC TOP (03:10)
[2025-08-08] MEDS: OXYTOCIN in NS 20 units 20 UNIT/1,000 ML BAG 125 UNIT IV (03:31)
[2025-08-08] MEDS: TRANEXAMIC ACID 1,000 MG IVPB 1,000 MG/100 ML BAG 200 MG IV (03:36)
--- NOTE | 2025-08-08 03:43 | PD.LDHP ---
Documentation for date of: 08/08/25 OB Labor/Induct. HPI History of Present Illness Chief complaint: Active labor : 3 Para: 2 Term pregnancies: 2 pregnancies: 0 Living children: 2 History of Abortions: Spontaneous and Elective: 0 History of Vaginal deliveries: 2 History of sections: No History of : No FRACISCO: 08/15/25 Gestational Age (weeks): 39 History of present illness: Patient is a 30-year-old 3 para 2-0-0-2 at 39 weeks and 0 days who presented to labor and delivery triage with contractions and she was noted to be 7 cm dilated. Patient denies any vaginal bleeding leakage of fluid and reports adequate movements. Patient started care with [facility] and then she transferred care to the [facility] clinic in the third trimester. As per available records current has been uncomplicated. Patient has a history of 2 full-term vaginal deliveries without any major complications. Labs Labs: Positive: Rubella Titre, Negative: RPR, Hepatitis B, HIV, Chlamydia, Gonorrhea and Group Beta Strep and Unknown: Herpes Type 1 and Herpes Type 2 Review of Systems Review of Systems Systems Reviewed: All systems reviewed, normal except as documented Past Medical History Surgical History SURGICAL: Negative Section Meds Home Medications and Allergies Home Medications ?Medication ?Instructions ?Recorded ?Confirmed ?Type No Known Home Medications 08/07/25 08/07/25 History Allergies Allergy/AdvReac Type Severity Reaction Status Date / Time No Known Allergies Allergy Verified 08/07/25 23:10 OB Exam Physical Exam Vital signs: Temp Pulse Resp BP Pulse Ox 97.8 F 82 19 97/51 L 98 08/07/25 23:18 08/08/25 03:34 08/07/25 23:18 08/08/25 03:34 08/08/25 03:38 Constitutional Constitutional: no acute distress Routine HEENT Exam Head: Present normocephalic and atraumatic Eye: Present EOMI and PERRL ENT: Present mucous membranes moist Routine Neck Exam Neck: Present supple and trachea midline Routine Cardiovascular Exam Cardiovascular: Present RRR Routine Abdominal Exam Abdominal: Present soft and normoactive bowel sounds Detailed Labor and Delivery Exam Dilation (cm): 7 Effacement (%): 100 Cervix position: mid station: -4 Consistency: soft Presentation: Vertex Baseline heart rate: 135 monitor accelerations: 15x15 monitor decelerations: None halfway variability: Average (6-10) Contraction frequency (min): 3-5 Routine Extremities Exam Extremities: Present full ROM Routine Skin Exam Skin: Present intact, dry and warm Routine Neurological Exam Neurological: Present alert, oriented X3 and CN II-XII intact Routine Psychiatric Exam Psychiatric: Present normal affect and normal thought process OB Results Labs 08/07/25 23:41 Labs: Short CBC 08/07/25 Range/Units 23:41 WBC 12.4 H (3.6-11.0) Thou/mm3 Hgb 11.3 L (12.0-16.0) g/dL Hct 34.3 L (36.0-46.0) % Plt Count 183 (140-440) Thou/mm3 OB Assessment & Plan Assessment and Plan (1) Active labor at term: Status: Acute Assessment and plan: Admit to inpatient status labor and delivery IV access, LR at 125 cc/h Labs: CBC type and screen and RPR Continuous maternal monitoring Epidural whenever desired Expectant management for now, oxytocin augmentation if contractions spaced out Pain management as per protocol Anticipate vaginal delivery
[2025-08-08] MEDS: BENZO/LANO/ALOE (Dermoplast) 60 GM CAN 1 SPRAY TOP (03:45)
--- NOTE | 2025-08-08 03:47 | PD.LDDELS ---
Data (Escobar) Data Hx Section: No : 3 Term: 2 : 0 Livin Abortions: Spontaneous & Theraputic: 0 Delivery Data (Escobar) Delivery Data Delivered by: daniela Delivery Method Presentation: Vertex
[2025-08-08 07:34] LABS: Basophils # (Auto) 0.0 Thou/mm3 (0.0-0.2); Basophils % (Auto) 0 % (0-2.5); Eosinophils # (Auto) 0.0 Thou/mm3 (0.0-0.5); Eosinophils % (Auto) 0 % (0-10); Hematocrit 32.0 % (36.0-46.0); Hemoglobin 10.4 g/dL (12.0-16.0); Immature Granulocytes Auto 0.13 Thou/mm3 (0.00-0.00); Lymphocytes # (Auto) 1.0 Thou/mm3 (1.0-4.8); Lymphocytes % (Auto) 7 % (10-50); Mean Corpuscular HGB Conc 32.5 g/dl (31.0-37.0); Mean Corpuscular Hemoglobin 28.1 pg (25.0-35.0); Mean Corpuscular Volume 87 fL (80-100); Monocytes # (Auto) 0.8 Thou/mm3 (0.0-0.8); Monocytes % (Auto) 6 % (0-12); Neutrophils # (Auto) 12.3 Thou/mm3 (1.8-7.7); Neutrophils % (Auto) 86 % (37-80); Nucleated Red Blood Cell # 0.00 Thou/mm3 (0.00-0.00); Nucleated Red Blood Cell % 0 /100 WBC (0); Platelet Count 149 Thou/mm3 (140-440); RDW Standard Deviation 48.8 fL (36.4-46.3); Red Blood Count 3.70 Miln/mm3 (4.00-5.20); White Blood Count 14.3 Thou/mm3 (3.6-11.0)
[2025-08-08] MEDS: IBUPROFEN TAB 400 MG TABLET 800 MG PO (08:59)
[2025-08-08] MEDS: DOCUSATE SOD 100 MG CAPSULE PO (08:59)
[2025-08-08 09:57] LABS: Basophils # (Auto) 0.0 Thou/mm3 (0.0-0.2); Basophils % (Auto) 0 % (0-2.5); Eosinophils # (Auto) 0.0 Thou/mm3 (0.0-0.5); Eosinophils % (Auto) 0 % (0-10); Hematocrit 32.1 % (36.0-46.0); Hemoglobin 10.5 g/dL (12.0-16.0); Immature Granulocytes Auto 0.08 Thou/mm3 (0.00-0.00); Lymphocytes # (Auto) 1.0 Thou/mm3 (1.0-4.8); Lymphocytes % (Auto) 7 % (10-50); Mean Corpuscular HGB Conc 32.7 g/dl (31.0-37.0); Mean Corpuscular Hemoglobin 28.4 pg (25.0-35.0); Mean Corpuscular Volume 87 fL (80-100); Monocytes # (Auto) 0.7 Thou/mm3 (0.0-0.8); Monocytes % (Auto) 5 % (0-12); Neutrophils # (Auto) 12.4 Thou/mm3 (1.8-7.7); Neutrophils % (Auto) 87 % (37-80); Nucleated Red Blood Cell # 0.00 Thou/mm3 (0.00-0.00); Nucleated Red Blood Cell % 0 /100 WBC (0); Platelet Count 153 Thou/mm3 (140-440); RDW Standard Deviation 49.0 fL (36.4-46.3); Red Blood Count 3.70 Miln/mm3 (4.00-5.20); White Blood Count 14.3 Thou/mm3 (3.6-11.0)
--- NOTE | 2025-08-08 11:33 | PC.CC ---
0830-ASW completed a biopsychosocial assessment with the pt at bedside. Present was the FOB Bertram Collado and was with the pt. ASW explained the reason for the visit and explained that scientific writer was also present to provide community resources. ASW explained that it was reported that the pt was late to care. The pt reported that she was late to care because she could not find an OB for care. She stated she typically would go to [facility] but when she attempted to make an appointment at [facility], they told her that they are no longer accepting OB pts. Pt stated she finally located where Liss Guevara had relocated to, at the [facility], and she then scheduled an appointment. Pt stated that once she was connected to Liss Guevara, she remained there and her care was consistent thereafter. Pt reported she delivered the vaginally, is breast feeding and ASW viewed the mother to be breast feeding upon entry. Pt was viewed to be bonding appropriately. Pt delivered at 39 weeks. The infants Peds will be Dr. Seymour from [facility] and at this time the mother does not have any worries or concerns for the . Pt stated she is unaware if the infant has been tested for the heating exam. Pt denies the infant being on lights. ASW provided community resources to the [facility] and the [facility] services. Pt was receptive. At this time, there are no concerns from SS and no CWS report will be made.
[2025-08-08] MEDS: ACETAMINOPHEN 325 MG TABLET 650 MG PO (20:06)
[2025-08-09] VITALS: BP 112/66; PULSE 62; RESP 18; TEMP 36.7; O2SAT 97
[2025-08-09 03:59] VITALS: BP 110/69; PULSE 61; RESP 16; TEMP 36.4; O2SAT 98
--- NOTE | 2025-08-09 05:32 | ESPR_ITS ---
Subjective Subjective Interval history: Delivery type: Patient doing well this morning. No acute complaints. Ambulating, tolerating p.o., and voiding without difficulty. HTN/Pre-E screen negative: No CP, SOB, PRADHAN, visual changes, RUQ pain. : Yes Lochia: diminishing Bowel: Flatus + / BM + UOP: Voiding freely Exam Vital Signs Temp Pulse Resp BP Pulse Ox O2 Del Method 97.5 F 61 16 110/69 98 Room Air 08/09/25 03:59 08/09/25 03:59 08/09/25 03:59 08/09/25 03:59 08/09/25 03:59 08/09/25 03:59 Constitutional Constitutional: no acute distress Routine HEENT Exam Head: Present normocephalic and atraumatic Eye: Present EOMI and PERRL ENT: Present mucous membranes moist Routine Neck Exam Neck: Present supple and trachea midline Routine Respiratory Exam Respiratory: Present chest non-tender, lungs clear, normal breath sounds and no resp distress Routine Cardiovascular Exam Cardiovascular: Present RRR Routine Abdominal Exam Abdominal: Present soft and normoactive bowel sounds Routine Extremities Exam Extremities: Present full ROM Routine Skin Exam Skin: Present intact, dry and warm Routine Neurological Exam Neurological: Present alert, oriented X3 and CN II-XII intact Routine Psychiatric Exam Psychiatric: Present normal affect and normal thought process Objective Labs 08/08/25 09:20 Labs: Laboratory Results - last 24 hr 08/08/25 08/08/25 07:09 09:20 WBC 14.3 H 14.3 H RBC 3.70 L 3.70 L Hgb 10.4 L 10.5 L Hct 32.0 L 32.1 L MCV 87 87 MCH 28.1 28.4 MCHC 32.5 32.7 RDW Std Deviation 48.8 H 49.0 H Plt Count 149 D 153 Neut % (Auto) 86 H 87 H Lymph % (Auto) 7 L 7 L [place] % (Auto) 6 5 Eos % (Auto) 0 0 Baso % (Auto) 0 0 Neut # (Auto) 12.3 H 12.4 H Lymph # (Auto) 1.0 1.0 [place] # (Auto) 0.8 0.7 Eos # (Auto) 0.0 0.0 Baso # (Auto) 0.0 0.0 Immature Gran # (Auto) 0.13 H 0.08 H Absolute Nucleated RBC 0.00 0.00 Immature Gran % 1 H 1 H Nucleated RBC % 0 0 Assessment & Plan Problem List (1) Active labor at term: Status: Acute Assessment and plan: 1. Continue routine /post-op care 2. Labs reviewed, cbc appropriate 3. Remove dressing/[place] 4. Encourage to ambulate, shower 5. Encourage PO intake, breast feeding Time Spent With Patient Time: Total time spent is greater than 50% in coordination of care (as documented) at patient's floor/unit and/or counseling patient:
--- NOTE | 2025-08-09 05:32 | PD.LDDELS ---
Data (Escobar) Data Hx Section: No : 3 Term: 2 : 0 Livin Abortions: Spontaneous & Theraputic: 0 Delivery Data (Escobar) Labor Data Initiation of labor: Spontaneous Induction/Augmentation Agent: None ROM date: 08/08/25 ROM time: 03:03 Amniotic membrane rupture type: Spontaneous Amniotic fluid description: Clear Delivery Data Onset of labor date: 08/07/25 Onset of labor time: 22:00 Complete dilation date: 08/08/25 Complete dilation time: 02:53 delivery date: 08/08/25 delivery time: 03:28 Placenta delivery date: 08/08/25 Placenta delivery time: 03:31 Stage 1 total time: Labor - Stage 1 Duration 4 hours and 53 minutes Delivered by: daniela Delivery nurse: Esteban Kay nurse: Rolando Mcknight RN Melt Down Furnace Operator at delivery: No Support person(s) at delivery: FOB Delivery Method Delivery method: Normal Vaginal Delivery Presentation: Vertex Anesthesia Type Anesthesia Type: Epidural Placenta Placenta delivery description: Spontaneous Cord blood sent to lab: Yes cord blood collection: Cord Blood Type Episiotomy Episiotomy description: None Umbilical Cord cord description: 3 Vessels Linn Data (Escobar) Linn Data order: 1 Linn's gender: Male weight (gms): 3345 g Weight (pounds): 7 lbs and 6.0 ozs 1 minute: 9 5 minutes: 9
--- NOTE | 2025-08-09 05:33 | PD.LDDS ---
DS: Providers Provider Date of admission: 08/07/25 23:37 Primary care physician: Physician No Primary/Family Admitting Provider: Teto Moreland MD Attending Provider on Admission: Teto Moreland MD Consults: 08/08/25 05:27 Referral Routine Comment: Attending Provider on DC: Teto Moreland MD Discharging Provider: Teto Moreland MD DS: Diagnosis Discharge Diagnosis (1) Active labor at term: Status: Acute (2) Vaginal delivery: Status: Acute Problem List Completed Was Problem List Reviewed/Reconciled?: Yes Summary/Hosp Course Brief History: Patient is a 30-year-old 3 para 2-0-0-2 at 39 weeks and 0 days who presented to labor and delivery triage with contractions and she was noted to be 7 cm dilated. Patient denies any vaginal bleeding leakage of fluid and reports adequate movements. 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 As per available records current has been uncomplicated. Patient has a history of 2 full-term vaginal deliveries without any major complications. Peripartum Data Delivery Method: Normal Vaginal Delivery Episiotomy Description: None Time Spent with Patient Time attestation: Total time spent providing and/or coordinating discharge services: Exam Vital Signs Temp Pulse Resp BP Pulse Ox O2 Del Method 97.5 F 61 16 110/69 98 Room Air 08/09/25 03:59 08/09/25 03:59 08/09/25 03:59 08/09/25 03:59 08/09/25 03:59 08/09/25 03:59 Discharge Plan Plan Patient Disposition: HOME (Self Care) Patient condition on transfer: Stable Prescriptions/Referrals Prescriptions/Med Rec: New docusate sodium [Stool Softener] 100 mg capsule 100 mg PO QDAY 30 Days Qty: 30 0RF ibuprofen 600 mg tablet 600 mg PO Q6H MDD 4 PRN (Reason: fever or pain) 10 Days Qty: 40 0RF Referrals: Teto Moreland MD [Physician, PIPING ENGINEER] No Primary/Family,Physician [Primary Care Provider] Patient/Caregiver Discharge Instructions Meds to Beds: Yes Education Materials: After a Vaginal , Breast Care After , : Caring for Yourself, Feel Healthy After Print Language: Estonian Stand Alone Forms: [facility] Award Info., Patient Portal Info Letter Discharge Order Discharge Orders: Discharge (Routine); Ordered 08/09/25 Ordered By: Teto Moreland Planned Discharge Date 08/09/25
[2025-08-09 08:00] VITALS: BP 113/68; PULSE 71; RESP 16; TEMP 36.6; O2SAT 97
[2025-08-09] MEDS: DOCUSATE SOD 100 MG CAPSULE PO (08:56)
== END 2025-08-09 12:20 | disposition home or self-care (01) | DRG 807 ==
LOC: S4SX 08-08 05:01 → S4NX 08-08 05:41
PROVIDERS: Admitting Provider Obstetrics & Gynecology; Visit Provider Obstetrics & Gynecology
DX: O80 Encounter for full-term uncomplicated delivery (principal); Z37.0 Single live birth; Z3A.39 39 weeks gestation of pregnancy
CPT/HCPCS: 36415; 59409; 80307; 85025; 86780; 86850; 86900; 86901; 94762; J2590; J2795; J3490; J7120; A9270

== ENCOUNTER 2025-08-25 15:05 | Outpatient (AMB) | payer BC, SELFPAY ==
[2025-08-25 15:44] VITALS: BP 112/75; PULSE 67; RESP 18; TEMP 36.2; O2SAT 98
--- NOTE | 2025-08-25 15:44 | AMBOBPPN_ITS ---
Vital Signs 08/25/25 15:44 Weight 71.441 kg Weight Measurement Method Standing Scale BP 112/75 Blood Pressure Source Automatic Cuff Blood Pressure Location Left Upper Arm Position Sitting Respiration 18 Pulse 67 Pulse Source Monitor Temp 97.2 F Temp Source Oral Pulse Oximetry (%) 98 Oxygen Delivery Method Room Air Allergies/Home Meds Allergies & Medications Allergies No Known Allergies Allergy (Verified 08/25/25 15:45) Medication Reconciliation docusate sodium 100 mg capsule (Stool Softener) 100 mg PO QDAY 30 days #30 caps 08/09/25 [Rx Confirmed 08/25/25] Intake Visit Data Collection New Patient or Established: Established Patient (seen at [facility] within 3 years) Reason for Visit:: PP Seen by Clinical Staff ONLY (RN/MA): No Fork Lift Technician Required: No Do You Feel Safe at Home: Yes Authorities Contacted: N/A PCP or OBGYN visit in last 3 months: Yes Date of Last PCP or OBGYN visit: 08/09/25 Hx Now: No Are you currently on any form of Control: No Pain Present Currently: No Pain Scale Used: Fierro-Benavidez/Numerical Pain scale:: 0 Smoking Status Smoking Status: Never smoker Immunizations Flu Vaccine in the Last 12 Months: No Flu Vaccine Exclusion Criteria: No 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 History Past Medical History: No Hx Neurological Disorders, No Hx Cardiac Disorders, No Hx Cancer, Yes Hx Blood Disorders, Yes Hx Anemia, No Hx Gastrointestinal Disorders, No Hx Renal Disease, No Hx Diabetes Mellitus Type 1 and No Hx Diabetes Mellitus Type 2 Questionnaires Covid-19 Vaccine Questionnaire Has patient been vacinated for Covid-19 Have you been vacinated for Covid-19: No Social History Living Situation History Lives With: Children Housing: House Tobacco History Smoking Status: Never smoker Second Hand Smoke Exposure: No Alcohol History Alcohol Intake: Never Domestic Abuse History Do You Feel Safe at Home: Yes EPDS - PP Depression Screening [place] Pospartum Depression Screen I have been able to laugh and see the funny side of things: (0) As much as I always could I have blamed myself unnecessarily when things went wrong: (0) No, never I have been anxious or worried for no good reason: (0) No, not at all I have felt scared or panicky for no very good reason: (0) No, not at all Things have been getting on top of me: (0) No, I have been coping as well as ever I have been so unhappy that I have had difficulty sleeping: (0) No, not at all I have felt sad or miserable: (0) No, not at all I have been so unhappy that I have been crying: (0) No, never The thought of harming myself has occurred to me: (0) Never Total Score: EPDS Score: Referral is indicated for score of 9 or more, suicidal, or if provider believes patient is depressed regardless of score.: 0 EPDS completed yes Care OB Visit Log OB Flowsheet Initial Weight: Not Recorded Date -?-?-?-?-?-?-?-?-?-?-?-?- EGA Weight BP Alb Glu CTX Pres Fundal ht FHR Mov Dilation Station Effacement Hx Notes Visit Note 03/03/25 -?-?-?-?-?-?-?-?-?-?-?-?- 16w 3d 66.395 kg 105/67 absent unknown 16 145 active no ob complaints, light FM, patient unsure about NIPT draw, MFM appointment pending f/u on perinate appointment, reviewed nIPT, continue PNV, rtc 4 week 03/31/25 -?-?-?-?--?-?-?-?-?-?-?-?- 20w 3d 68.266 kg 102/63 absent unknown 20 144 active no ob complaints. no ptl complaints, + FM, no leaking or bleeding, f/u MFM to check spine, need carrier screen nv carrier screen with 3rd tri labs, f/u mfm 6 week, hydrate, discuss ptl precaution. rtc 4 wk obc 06/09/25 -?-?-?-?-?-?-?-?-?-?-?-?- 30w 3d 73.709 kg 110/63 absent cephalic 30 135 active Fetus active. Denies any labor. Patient declined Tdap today. Reports good movement. Denies leaking, denies bleeding, denies contractions 3rd tri labs today, carrier screen NV, f/u mfm 06/16, discuss ptl precaution. discuss TDAP. rtc 2 week OBC 07/15/25 -?-?-?-?-?-?-?-?-?-?-?-?- 35w 4d 75.013 kg 104/64 absent cephalic 35 145 active fetus active. no labor complaints. denies leaking, bleeding or cramps Patient started disability July 03. Discussed labor precautions and kick count twice a day. GBS today. Continue prenatals. Return in a week OB check. Patient has an appointment with [facility] in the morning 07/28/25 -?-?-?-?-?--?-?-?-?-?-?-?- 37w 3d 63.219 kg 117/68 occasional cephalic 37 145 active Fetus active. Occasional contraction. Denies leaking or bleeding GBS negative. Discussed labor precautions. Kick count twice a day. Increase fluids. Return in a week OB check 08/05/25 -?-?-?-?-?-?-?-?-?-?-?-?- 38w 4d 78.075 kg 103/66 occasional cephalic 38 145 active 1 -2 50 Fetus active. Increased pressure. Denies leaking or bleeding. Occasional contraction Discussed labor precautions. Kick count twice a day. Continue prenatals. Discussed danger signs symptoms return a week OB check FRACISCO Calculator Estimated Delivery Date Method Current WG Current Estimate 08/15/25 LMP (Certain) 41w 3d Other Estimates 08/15/25 Ultrasound #1 41w 3d 08/15/25 Ultrasound #2 41w 3d 08/15/25 Manual 41w 3d Final FRACISCO: 07/26 11/18 Notes Visit Date: 07/28/25 Last Updated by: Liss Guevara CNM GBS- Visit Date: 03/31/25 Last Updated by: Liss Guevara CNM 03/30: male Visit Date: 03/03/25 Last Updated by: Liss Guevara CNM 30 yo . lmp 11/08/24. EDC 08/15/25. O+,abs-, rpr;;nr, rub imm, hbsag-,hiv-. HC-, gc/ct-,UT- HPI Interval History: 30-year-old 3 para 3 for 2-week . Patient had a vaginal August 08, 2025. She was 39 weeks. She had a little boy weighing 7 pounds 6. Breast and bottlefeeding. Siblings are adjusting. Father the baby is involved. She has good help at home. Patient has no interval complaints. 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 Lungs clear no wheezes. Abdomen is soft nontender. Uterus well involuted. Perineum is intact no lacerations. No swelling. Small lochia. Negative Homans' sign. 2+ DTRs. No edema no swelling. Breasts are soft Office Procedures [facility] LOC & Office Proc's Nursing/Assessment Patient Status: Established Patient OB Clinic Nursing Assessment: Medication Reconciliation, Update PMH in EMR and Vital Signs OB Clinic Coordination of Care: Consent,records obtained, informed consent, Education Simp Pt/Fam, Lab and Imaging orders, Results/Orders obtained and Staff clarify orders Established Patient Charge Established Patient Point Assignment: 80 Established Patient Point Charge: EP Level 3 (80-115) Assessment & Plan Diagnosis / Problem List (1) 2 weeks follow-up: Status: Acute Plan Pelvic rest. Return for Pap. Continue prenatals. Discussed latching and breast-feeding positions. No heavy lifting still for another 4 weeks. Care Reviewed delivery summary and any complications: Yes Uterus involuted to: 3 below Perineal / incision healing noted: Yes Screened for depression: Yes Depression counseling provided: No Discussed family planning & contraception: Yes Contraception planned: condom Counseling on safe resumption of sexual activity: Yes Counseling on gradual excercise: Yes Discussed and concerns (describe), provided support: Yes Referred to business continuity specialist: No Counseled on good nutrition, hydration, and self care: Yes Reviewed vaccine status: No Chronic & current problems reconciled on problem list: Yes Infant care discussed; questions answered: feeding Follow up: routine/prn Additional counseling & anticipatory guidance provided: rtc pap
== END 2025-08-25 16:41 | disposition home or self-care (01) ==
LOC: HODSOBC 15:05
PROVIDERS: Supervising Provider Advanced Practice Midwife; Visit Provider Advanced Practice Midwife
DX: Z39.2 Encounter for routine postpartum follow-up (principal); Z39.1 Encounter for care and examination of lactating mother
CPT/HCPCS: 99213; G0463